=== PATIENT | female | born 1955 | race Caucasian/White ===

== ENCOUNTER 2025-05-22 07:00 | Day surgery (SDC) | payer MEDICARE, OTHER ==
[2025-03-06 13:20] VITALS: BP 128/77
[2025-05-16 13:36] VITALS: BP 128/77
[~2025-05-22] VITALS: Ht 157.5 cm; Wt 68.0 kg
[~2025-05-22 07:00] MED LIST: ATORVASTATIN CA20 MG PO; BOTULINUM TOXIN TYPE A 100 UNITS VIAL IM SCH; CEFAZOLIN SODIUM 2 GM/20 ML SYR IV SCH; CEPHALEXIN500 MG PO; CRANBERRY500 M3 PO; ELDERBERRY350 MG PO; ESTRADIOL1 G2 TD; GEMTESA75 MG PO; HIPREX1 GM PO; IBLOOD GLUCOSE TEST STRIP 1 EA TEST VI PRN; KLAYESTA15 GM TOP; LACTATED RINGER'S 1,000 ML IV SCH; LEVOTHYROXINE100 MC2 PO; LIDOCAINE HCL 1% 5 ML SDV INJ ONE; NATTOKINASE50 MG PO; PANTOPRAZOLE SO20 MG PO; SODIUM CHLORIDE 0.9% 0 ML IV ONE; VALTREX1000 MG PO; VITAMIN B-12100 MCG PO; VITAMIN C500 M4 PO; VITAMIN D310 MC2 PO; VITAMIN D310 MC4 PO; ZINC50 M2 PO
[2025-05-22 07:35] VITALS: BP 147/81
--- NOTE | 2025-05-22 07:40 | NUR ---
VISITED DURING SPIRITUAL CARE ROUNDS. PT APPEARED TO BE IN OVERALL GOOD SPIRITS; NO IMMEDIATE NEEDS. ADMINISTRATIVE AIDE PROVIDED SUPPORTIVE PRESENCE, HOSPITALITY, PRAYER, FACILITATED INTERACTION WITH THERAPY ANIMAL. PT EXPRESSED GRATITUDE, HOPE.
[2025-05-22] MEDS ORDERED: MIDAZOLAM HCL 2 MG/2 ML VIAL ONE (08:59)
[2025-05-22] MEDS ORDERED: LIDOCAINE HCL 2% 5 ML SDV ONE (09:26)
[2025-05-22] MEDS ORDERED: KETOROLAC TROMETHAMINE 30 MG/ML VIAL ONE (09:43)
[2025-05-22] MEDS ORDERED: PROCHLORPERAZINE EDISYLATE 10 MG/2 ML VIAL IV PRN (09:45)
[2025-05-22] MEDS ORDERED: MORPHINE SULFATE 4 MG/ML VIAL IV PRN (09:45)
[2025-05-22] MEDS ORDERED: OXYCODONE/APAP 5/325 TAB PO PRN (09:45)
[2025-05-22] MEDS ORDERED: PHENAZOPYRIDINE HCL 100 MG TAB PO PRN (09:45)
[2025-05-22] MEDS ORDERED: TRAMADOL HCL 50 MG TAB PO PRN (09:45)
[2025-05-22] MEDS ORDERED: ACETAMINOPHEN 1,000 MG/100 ML VIAL ONE (09:54)
[2025-05-22 10:46] VITALS: BP 164/82
--- NOTE | 2025-05-22 11:46 | NUR ---
05/22/25 1146 [address]imal[address] 1009- PT PRESENTS TO PACU, SUPINE POSITION, DROWSY BUT REPORTING NEEDING TO URINATE. PT REORIENTED TO TIME AND PLACE. BREATHING EVEN AND NON LABORED ON ROOM AIR. LR TKO TO LH IV. ALL MONITORS IN PLACE, ABD SOFT, NON DISTENDED. PT CONTINUES TO REPORT NEEDING TO URINATE. 1015- PT PLACED ON BED GRACIA AT THIS TIME. C/O IRRITATION AND FEELING OF NEEDING TO URINATE. PT REPORTS SHE IS VOIDING SOME AND WANTS TO KEEP THE BEDPAN. 1020- WATER PROVIDED, TOLERATING WELL. PLAN TO TAKEN PYRIDIUM. 1030- PT ALSO EATING JELLO AT THIS TIME TO TAKE A PAIN PILL. PT CONTINUES TO SIT ON BED GRACIA AND DOES NOT WANT IT REMOVED. 1045- BED GRACIA REMOVED, CLEAR YELLOW URINE. PT UP TO SIDE OF BED, TOLERATING WELL, PLAN TO DRESS. FRIEND CALLED FOR RIDE HOME. 1052- PT DRESSED, SALINE LOCK REMOVED, TIP INTACT, DRESSING APPLIED. PT AMBULATED TO BATHROOM WITH STEADY GAIT. 1100- PT TO WHEELCHAIR, TOLERATED WELL. VERBALIZED UNDERSTANDING OF INSTRUCTIONS. ALL BELONGINGS WITH PT, TAKEN OUT TO FRIENDS CAR, ALERT AND ORIENTED. NO SIGNS OF DISTRESS.
--- NOTE | 2025-05-24 21:17 | EKG ---
[facility] [address] [facility] [place] [id number] Signed Normal sinus rhythm Left axis deviation Anterolateral infarct (cited on or before 11-FEB-2024) Abnormal ECG When compared with ECG of 11-FEB-2024 16:53, Questionable change in initial forces of Anterolateral leads T wave inversion now evident in Inferior leads Nonspecific T wave abnormality now evident in Lateral leads Confirmed by Noam Mahoney DO ([id number]) on 05/24/2025 9:17:46 PM Electronically Signed By: NOAM MAHONEY DO 05/24/257 PATIENT NAME: GLADYS MULLEN Electrocardiogram DATE OF : 55 PHYSICIAN: NOAM MAHONEY DO REPORT #: [id number] REPORT IS CONFIDENTIAL AND NOT TO BE RELEASED WITHOUT AUTHORIZATION
== END 2025-05-22 11:00 | disposition home or self-care (01) ==
LOC: OPS 07:00 → DS 07:00 → OPS 09:45
PROVIDERS: ATTEND Urology
PROC: 3E1K78Z Irrigation of Genitourinary Tract using Irrigating Substance, Via Natural or Artificial Opening (ICD-10-PCS; 2025-05-22)
PROC: 0TJB8ZZ Inspection of Bladder, Via Natural or Artificial Opening Endoscopic (ICD-10-PCS; principal; 2025-05-22 09:45)
DX: N30.90 Cystitis, unspecified without hematuria (principal); N32.81 Overactive bladder; I10 Essential (primary) hypertension; Z79.890 Hormone replacement therapy; Z79.899 Other long term (current) drug therapy
CPT/HCPCS: 00910; 93005; 93010; J0131; J0690; J1885; J2003; J2250; J2704; J7121